=== PATIENT | female | born 1960 | race Caucasian/White ===

== ENCOUNTER → 2020-05-15 | Outpatient (CLI) | payer BC ==
[2020-05-15 12:22] LABS: Basophils % (A) 1 %; Eosinophils # (A) 0.1 k/uL (0-0.7); Eosinophils % (A) 2 %; HCT 41.4 % (34.0-46.0); HGB 13.3 gm/dL (11.4-16.0); Lymphocytes # (A) 1.3 k/uL (1.0-4.8); Lymphocytes % (A) 24 %; MCHC 32.1 g/dL (31.0-37.0); MCV 96.8 fL (80.0-100.0); Mean Platelet Volume 7.1; Monocytes # (A) 0.3 k/uL (0-1.0); Monocytes % (A) 5 %; Neutrophils # (A) 3.4 k/uL (1.3-7.7); Neutrophils % (A) 66 %; Platelet Count 252 k/uL (150-450); RBC 4.28 m/uL (3.80-5.40); RDW 12.7 % (11.5-15.5); WBC 5.2 k/uL (3.8-10.6)
== END | disposition home or self-care (01) ==
LOC: LABPAT 11:13
PROVIDERS: ATTEND Obstetrics & Gynecology
DX: Z01.818 Encounter for other preprocedural examination (principal)
CPT/HCPCS: 36415; 85025; 93005

== ENCOUNTER 2020-06-08 06:18 | Day surgery (SDC) | payer BC ==
[2020-06-05 09:06] VITALS: BMI 23.5
--- NOTE | 2020-06-06 16:16 | P.HPOB ---
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 Due to its location a LEEP colposcopy has been scheduled. Risks/benefits/alternatives to this procedure were reviewed with the patient in detail and all questions were answered for her prior to proceeding to the operative room. She is aware of the potential for further surgery if margins are unclear since will not be able to see how high up the changes are and will essentially be a blind biopsy to try and capture all of the dysplasia. Other risks/benefits and alternatives were reviewed with the patient in detail and all questions were answered for her prior to proceeding to the operative room. Past Medical History Past Medical History: No Reported History History of Any Multi-Drug Resistant Organisms: None Reported Past Surgical History: Tonsillectomy, Uterine Ablation Past Anesthesia/Blood Transfusion Reactions: No Reported Reaction Past Psychological History: No Psychological Hx Reported Smoking Status: Former smoker Past Alcohol Use History: Occasional Additional Past Alcohol Use History / Comment(s): Smoked in her 20's, quit when 22 yrs of age. Past Drug Use History: None Reported - Past Family History Mother Family Medical History: No Reported History Medications and Allergies Home Medications Medication Instructions Recorded Confirmed Type No Known Home Medications 06/05/20 06/05/20 History Allergies Allergy/AdvReac Type Severity Reaction Status Date / Time No Known Allergies Allergy Verified 06/05/20 09:07 Exam Osteopathic Statement: *. No significant issues noted on an osteopathic structural exam other than those noted in the History and Physical/Consult. - OBG Physical Exam Breast: both: normal (no masses) Abdomen: bowel sounds normal, no diffuse tenderness, no bruit present, no guarding noted, no hepatomegaly, no splenomegaly, no mass Vulva: both: normal Vagina: normal moisture, no discharge Cervix: no lesion, no discharge Uterus: normal size, normal contour Adnexa: both: normal Anus/Rectum: normal perianal skin, no rectal mass, no hemorrhoids, heme negative
[~2020-06-08 06:18] MED LIST: DEXAMETHASONE SOD PHOSPHATE 10 MG/ML 1 ML VIAL IV ONE; HYDROmorphone 0.5 MG/0.5 ML SYRINGE IVP PRN; LACTATED RINGERS 1,000 ML IV SCH; LIDOCAINE 1% (10MG/ML) FOR IV START INTRADERMA PRN; ONDANSETRON 4 MG/2 ML VIAL IVP ONE; Pre Op ABX Message 1 EACH MISC MISCELLANE ONE
[2020-06-08] MEDS ORDERED: ONDANSETRON 4 MG/2 ML VIAL ONE (06:44)
[2020-06-08] MEDS ORDERED: IODINE/POTASS IOD (LUGOLS) BOTTLE TOPICAL ONE ×2 (07:23→07:39)
[2020-06-08] MEDS ORDERED: MIDAZOLAM 2 MG/2 ML VIAL ONE (07:37)
[2020-06-08] MEDS ORDERED: fentaNYL (PF) 50 MCG/ML 2 ML AMP ONE (07:37)
[2020-06-08] MEDS ORDERED: PROPOFOL 10 MG/ML 20 ML VIAL IV ONE (07:37)
[2020-06-08] MEDS ORDERED: KETOROLAC 30 MG/ML 1 ML VIAL ONE (07:37)
[2020-06-08] MEDS ORDERED: LIDOCAINE 1% INJ 10MG/ML (20 ML MDV) ONE (07:37)
[2020-06-08] MEDS ORDERED: FERRIC SUBSULFATE (MONSELS) JAR TOPICAL ONE (08:04)
--- NOTE | 2020-06-08 08:10 | P.OP ---
Date of Procedure: 06/08/20 Preoperative Diagnosis: Cervical dysplasia Postoperative Diagnosis: Same Procedure(s) Performed: LEEP colposcopy Anesthesia: ZURDO Surgeon: Loc Buchanan Estimated Blood Loss (ml): 5 Pathology: other (Cervical cone) Condition: stable Disposition: same day Operative Findings: Patient has essentially no posterior cervix and the left cervical area is basically flush to the vagina making this a technically difficult case. Description of Procedure: Patient was taken to the operating suite where a general anesthetic was found be adequate. She was prepped and draped in normal sterile fashion placed in dorsal lithotomy position. Initially a coated speculum was inserted in the vagina and the cervix identified and covered with Lugol solution. No ectocervical changes were noted. Unique cervical architecture was noted with essentially the entire posterior cervix flush cancer vagina as well as the left side of the cervix making it very difficult to pull it away from the vaginal wall to obtain biopsy. Anterior cervix was 4 grasped with a coated tenaculum and using a 1 cm loop a endocervical cone was obtained. 2 extra small pieces works excise to try and make sure that we were able to get complete cervical cone and hopefully deep enough that it removed all dysplastic tissue. Once this tissues collected 1 cm loop was exchanged for a ball-tipped and the area was cauterized to try and desiccate any potential remaining dysplastic tissue. Incidents were all then removed. Sponge, lap, needle counts were all correct 2. Patient was then taken to the recovery room in stable and satisfactory condition. Plan - Discharge Summary Discharge Rx Participant: Yes New Discharge Prescriptions: New Ibuprofen [Motrin] 600 mg PO Q6HR PRN #30 tab PRN Reason: Pain Discharge Medication List Ibuprofen [Motrin] 600 mg PO Q6HR PRN #30 tab 06/08/20 [Rx] Follow up Appointment(s)/Referral(s): Loc Buchanan DO [Doctor of Osteopathic Medicine] - 1 Week Activity/Diet/Wound Care/Special Instructions: No heavy lifting, limit stairs and driving, and complete pelvic rest for 2 weeks. If any high temperatures, heavy bleeding, or severe pain call my office Discharge Disposition: HOME SELF-CARE
[2020-06-08 08:29] VITALS: TEMP 97.3
[2020-06-08 09:44] VITALS: RESP 18
[2020-06-08 09:55] VITALS: BP 115/72; PULSE 59
== END 2020-06-08 10:15 | disposition home or self-care (01) ==
LOC: OR 06:18
PROVIDERS: ATTEND Obstetrics & Gynecology
DX: N87.0 Mild cervical dysplasia (principal); B97.7 Papillomavirus as the cause of diseases classified elsewhere; Z98.890 Other specified postprocedural states; Z87.891 Personal history of nicotine dependence
CPT/HCPCS: 88307; 57461; J2250; J1100; J2405; J2001; J3010; J1885; J2704

== ENCOUNTER 2020-10-24 08:33 | Day surgery (SDC) | payer BC ==
[2020-10-22 15:31] VITALS: BMI 25.0
[~2020-10-24 08:33] MED LIST changes: -DEXAMETHASONE SOD PHOSPHATE 10 MG/ML 1 ML VIAL IV ONE; -HYDROmorphone 0.5 MG/0.5 ML SYRINGE IVP PRN; -ONDANSETRON 4 MG/2 ML VIAL IVP ONE; -Pre Op ABX Message 1 EACH MISC MISCELLANE ONE
[2020-10-24 08:58] VITALS: TEMP 97.5
[2020-10-24] MEDS ORDERED: PROPOFOL 10 MG/ML 20 ML VIAL IV ONE (10:11)
[2020-10-24] MEDS ORDERED: LIDOCAINE 1% INJ 10MG/ML (20 ML MDV) ONE (10:11)
--- NOTE | 2020-10-24 10:34 | P.PCN ---
Date of Procedure: 10/24/20 Procedure(s) Performed: BRIEF HISTORY: Patient is a 60-year-old pleasant female scheduled for an elective colonoscopy as a part of evaluation of positive cologuard. Last colonoscopy was several years ago. PROCEDURE PERFORMED: Colonoscopy with snare polypectomy and Endo Clip placement. PREOPERATIVE DIAGNOSIS: Positive cologuard. IV sedation per Anesthesia. PROCEDURE: After informed consent was obtained, the patient, was brought into the endoscopy unit. IV sedation was administered by Anesthesia under continuous monitoring. Digital rectal examination was normal. Initially the Olympus CF-160 flexible video colonoscope was then inserted in the rectum, gradually advanced into the cecum without any difficulty. Careful examination was performed as the scope was gradually being withdrawn. Ileocecal valve and the appendiceal orifice were visualized and appeared normal. Prep was excellent. In the cecum opposite the ileocecal valve there was a 2 cm broad-based polyp that was removed by snare polypectomy followed by Endo Clip placement. In the proximal transverse colon there was a 5 mm polyp removed by snare polypectomy the transverse colon, descending colon, we normal. In the sigmoid: There was a 2 cm broad-based polyp removed by snare polypectomy. In the rectosigmoid colon there was a 1 cm polyp removed by snare polypectomy. Rest of the sigmoid colon, and rectum appeared normal. Retroflexion was performed in the rectum and no lesions were seen. The patient tolerated the procedure well. IMPRESSION: 1.5 cm broad-based cecal polyp status post polypectomy followed by Endo Clip placement 5 mm proximal transverse colon polyp status post snare polypectomy 2 cm broad-based proximal sigmoid colon polyp status post polypectomy 1 cm pedunculated rectosigmoid polyp status post polypectomy RECOMMENDATIONS: Findings of this examination were discussed with the patient as her family. She was advised to follow with the biopsy results. If the biopsy shows adenoma she can have a repeat colonoscopy in 3 years.
[2020-10-24 10:38] VITALS: RESP 16
[2020-10-24 11:02] VITALS: BP 111/72; PULSE 60
== END 2020-10-24 11:19 | disposition home or self-care (01) ==
LOC: ORWHC2ENDO 08:33
PROVIDERS: ATTEND Internal Medicine Gastroenterology
DX: D12.0 Benign neoplasm of cecum (principal); D12.3 Benign neoplasm of transverse colon; D12.7 Benign neoplasm of rectosigmoid junction; D12.5 Benign neoplasm of sigmoid colon; Z90.89 Acquired absence of other organs; Z98.890 Other specified postprocedural states
CPT/HCPCS: 88305; 45385; J2001; J2704; 45382

== ENCOUNTER → 2021-11-26 | Outpatient (CLI) | payer BC ==
--- NOTE | 2021-11-26 11:31 | US ---
EXAMINATION TYPE: US abdomen complete DATE OF EXAM: 11/26/2021 COMPARISON: NONE CLINICAL HISTORY: 61-year-old female R10.32 LLQ ABD PAIN,R19.04 LLQ MASS SWELLING. TECHNIQUE: Multiple sonographic images of the abdomen are obtained. FINDINGS: EXAM MEASUREMENTS: Liver Length: 13.8 cm Gallbladder Wall: 0.2 cm CBD: 0.6 cm Spleen: 8.2 cm Right Kidney: 9.1 x 4.0 x 3.9 cm Left Kidney: 11.4 x 4.9 x 5.3 cm Pancreas: Suboptimal visualization of the pancreatic head due to shadowing from bowel gas. Visualize d portions show no gross body. Liver: Slightly echogenic. No focal lesion. Gallbladder: No stones seen Evidence for sonographic Sarah's sign: No CBD: Upper limits of normal in caliber likely age-related change. Spleen: wnl Kidney: No hydronephrosis. Upper IVC: wnl Abd Aorta: wnl [employer] Supervisor notes: Additional scanning was performed over patient's area of concern, LLQ, with and wi thout valsalva. No definite hernia identified, no mass or fluid collection seen. IMPRESSION: 1. Targeted scanning along the left lower quadrant at the site of patient's swelling shows no discret e sonographic abnormality. If symptoms persist, consider cross-sectional imaging evaluation. 2. There may be mild fatty infiltration of the liver. 3. Bile duct borderline in caliber at 6 mm, likely age related change. Correlate with alkaline phosph atase and bilirubin levels.
== END | disposition home or self-care (01) ==
LOC: RADUSWWP 07:04
PROVIDERS: ATTEND Family Medicine
DX: R19.04 Left lower quadrant abdominal swelling, mass and lump (principal)
CPT/HCPCS: 76700

== ENCOUNTER → 2024-01-14 | Outpatient (CLI) | payer BC ==
--- NOTE | 2024-01-15 04:55 | MR ---
EXAMINATION TYPE: MR shoulder RT wo con DATE OF EXAM: 01/14/2024 COMPARISON: Outside right shoulder x-ray January 05, 2024 HISTORY: Right shoulder/ upper arm pain due to fall on ice about 5 weeks ago TECHNIQUE: Multiplanar, multisequence imaging of the right shoulder is performed without contrast. FINDINGS: Rotator Cuff: Intact supraspinatus and infraspinatus tendons. Intact subscapularis tendon. Rotator cu ff muscle bulk is preserved. Acromioclavicular Joint: Mild narrowing. No significant spurring. Underlying fat plane is maintained. Glenohumeral Joint: Small joint effusion. No significant spurring. Labrum: Increased signal superior labrum suggesting degenerative tear. Biceps Tendon: The long head of biceps is in normal location within bicipital groove. Bone marrow signal: Corresponding to radiograph there is linear diminished T1 signal through the late ral aspect of the humeral head consistent with acute nondisplaced comminuted type fracture. There is surrounding T2 hyperintense signal or edema. No significant bony displacement.. Other: No additional significant abnormality is appreciated. IMPRESSION: Acute comminuted nondisplaced fracture to the lateral aspect of the humeral head includin g the greater tuberosity without retracted rotator cuff tear. Degenerative superior labral tear.
== END | disposition home or self-care (01) ==
LOC: RADMRIMAIN 11:09
PROVIDERS: ATTEND Orthopaedic Surgery
DX: S42.295A Other nondisplaced fracture of upper end of left humerus, initial encounter for closed fracture (principal)

== ENCOUNTER → 2024-09-06 | Outpatient (CLI) | payer BC ==
[2024-09-06 10:13] VITALS: BP 110/69; PULSE 66; RESP 16; TEMP 97.8
--- NOTE | 2024-09-06 12:28 | P.HPOB ---
History of Present Illness H&P Date: 09/06/24 Chief Complaint: The patient is here for her routine gynecologic exam. This is a 64-year-old G2, P2 with an LMP of 2011. Patient is here to establish with this office. She previously saw Dr. Serna for her gynecologic care. She was last there on 09/01/2023. The records from Dr. Serna's office indicates she has had many years of abnormal Pap smears dating back to 2011. From [id number] she had many ASCUS Pap smears and low-grade JOSUÉ Pap smears with positive high- risk HPV testing. She has also had multiple colposcopies which were unremarkable. On 12/13/2019 she did have a Pap smear showing ASCUS with positive high-risk HPV testing. Colposcopic examination on 03/13/2020 had a fragment of possible high-grade dysplasia with the ECC. She was scheduled for a LEEP procedure of the cervix which was done on 06/08/2020 which showed LI-1. Since the LEEP procedure she has had 3 negative Pap smear cotest done on 08/20/2021, 08/27/2022, and 09/02/2023. The patient is without gynecologic complaints and denies any postmenopausal bleeding. Review of Systems The patient has gained 5 pounds over the last year. She denies respiratory, cardiac, or G.I. problems. Past Medical History Additional Past Medical History / Comment(s): Osteopenia(used monthly Rx ?Boniva? for 1yr). Past MEDICAL CODING MANAGER history: History of HPV. No other STDs in the past. History of Any Multi-Drug Resistant Organisms: None Reported Past Surgical History: Tonsillectomy, Uterine Ablation Additional Past Surgical History / Comment(s): Endometrial ablation in 2011. LEEP procedure of the cervix in June 2020. Colonoscopy 2020. Lipoma removed from her abdomen. Past Anesthesia/Blood Transfusion Reactions: No Reported Reaction Smoking Status: Former smoker Past Alcohol Use History: Occasional (About 10 drinks per week.) Additional Past Alcohol Use History / Comment(s): Quit smoking at age 22. Past Drug Use History: None Reported Additional History: She has been since 1984. She works for [employer] in [employer]. - Past Family History Mother Family Medical History: Cancer Additional Family Medical History / Comment(s): from widespread cancer with unknown primary. Father Family Medical History: Cancer Additional Family Medical History / Comment(s): from leukemia. Medications and Allergies Home Medications Medication Instructions Recorded Confirmed Type Multivit-Min/Iron/Folic/Lutein 1 each PO DAILY 10/22/20 09/06/24 History [Centrum Silver Women Tablet] Calcium Carbonate [Calcium] 1 tab PO DAILY 09/06/24 09/06/24 History Cholecalciferol [Vitamin D3 (25 1 tab PO DAILY 09/06/24 09/06/24 History Mcg = 1000 Iu)] Allergies Allergy/AdvReac Type Severity Reaction Status Date / Time No Known Allergies Allergy Verified 09/06/24 10:09 Exam Vital Signs Temp Pulse Resp BP Pulse Ox 09/06/24 10:11 97.8 F 66 16 110/69 98 Intake and Output 09/05/24 09/06/24 09/06/24 22:59 06:59 14:59 Other: Weight 68.946 kg Height 5 feet 7 inches, weight 152 pounds, BMI 23.8. This is a well-developed well-nourished white female who is alert and oriented times 3 in no acute distress. HEENT: Within normal limits. NECK: Supple without mass or thyromegaly. CHEST AND LUNGS: Clear to auscultation. HEART: Regular rate and rhythm. BREASTS: Are without mass or discharge. AXILLARY EXAM: Negative for adenopathy. BACK: Negative for CVA tenderness. ABDOMEN: Soft, nontender, without palpable masses. PELVIC EXAM: Normal external genitalia mild atrophy. Cervix and vagina appear normal with mild atrophy. The cervix is fairly nearly flush with the back of the vagina and slightly irregular consistent with previous LEEP procedure. The cervix is somewhat stenotic. There are no cervical lesions noted. There is no unusual discharge. There is no evidence of prolapse. The uterus is midposition, nongravid size and nontender. There are no palpable adnexal masses or tenderness. RECTAL EXAM: Rectovaginal exam is negative for mass or tenderness and is negative for occult blood. EXTREMITIES: Nontender. IMPRESSION: 1. 64-year-old menopausal female with gynecologic exam consistent with her previous LEEP procedure. The exam is otherwise unremarkable. 2. History of LEEP procedure on 06/08/2024 positive high-grade ECC, ASCUS Pap smear with positive high-risk HPV testing. She has had 3 negative Pap smear cotest since then. 3. History of osteopenia. PLAN: 1. Pap smear cotest was performed. If this is negative, we will plan on repeating the Pap smear in 2 to 3 years. Pap smear testing will be continued for 20 years beyond the LEEP procedure. 2. Self breast awareness was discussed with the patient. We have also discussed symptoms associated with inflammatory breast cancer. 3. Screening mammogram was done on 09/01/2023 and was normal per the patient. This was done at [facility]. She will repeat this here or at [facility]. The order slip was given to the patient for this. 4. Osteoporosis prevention was discussed. I have stressed the importance of adequate calcium, vitamin D and regular exercise. Recommended amounts of calcium and vitamin D were also discussed. She states her last bone density test was done at [facility]. According to the records it was done on 10/10/2022. Will plan on repeating this and the order slip was given to the patient for this. 5. She was advised to return in one year for her annual well woman exam.
== END ==
LOC: WWCWWP 09:50
PROVIDERS: ATTEND Obstetrics & Gynecology
DX: Z01.419 Encounter for gynecological examination (general) (routine) without abnormal findings (principal); M85.80 Other specified disorders of bone density and structure, unspecified site; Z78.0 Asymptomatic menopausal state; Z87.891 Personal history of nicotine dependence; Z98.890 Other specified postprocedural states

== ENCOUNTER → 2024-10-04 | Outpatient (CLI) | payer BC ==
--- NOTE | 2024-10-04 12:26 | BD ---
EXAMINATION TYPE: Axial Bone Density DATE OF EXAM: 10/04/2024 CLINICAL HISTORY: 64 years old Female. ICD-10 CODE: Z78.0 ASYMPTOMATIC MENOPAUSAL STA , Additional H istory: Height: 5 ft 5 1/2 in Weight: 152 FRAX RISK QUESTIONS: Alcohol (3 or more units per day): no Family History (Parent hip fracture): no Glucocorticoids (More than 3mos): no (Ex: prednisone, prednisolone, methylprednisolone, dexamethasone, and hydrocortisone). History of Fracture in Adulthood: yes Secondary Osteoporosis: 1. Type 1 Diabetes: no 2. Hyperthyroidism: no 3. Menopause before 45: no 4. Malnutrition: no 5. Chronic liver disease: no Rheumatoid Arthritis: no Current Tobacco Use: no RISK FACTORS HISTORY OF: Surgery to Spine/Hip(right/left)/Wrist (right/left): no MEDICATIONS: Thyroid Medications: none Osteoporosis Medications: none EXAM MEASUREMENTS: Bone mineral densitometry was performed using the [employer] System. Bone mineral density as measured about the Lumbar spine is: ----- L1-L4(G/cm2): 1.000 T Score Values are as follows: ----- L1: -1.2 ----- L2: -1.5 ----- L3: -1.7 ----- L4: -1.7 ----- L1-L4: -1.5 Z Score Values are as follows: ----- L1: 0.1 ----- L2: -0.2 ----- L3: -0.3 ----- L4: -0.4 ----- L1-L4: -0.2 baseline Bone mineral density about the R hip (g/cm2): 0.742 Bone mineral density about the L hip (g/cm2): 0.744 T Score values are as follows: -----R Neck: -2.1 -----L Neck: -2.1 -----R Total: -1.6 -----L Total: -1.4 Z Score values are as follows: -----R Neck: -0.8 -----L Neck: -0.8 -----R Total: -0.6 -----L Total: -0.4 baseline FRAX%s: The graph provided illustrates a 18.4 % chance for a major osteoporotic fx and a 3.0 % chance for the hips probability for fx in 10 years time. IMPRESSION: Osteopenia (T Score between -2.5 and -1). There is slightly increased risk of fracture and the patient may be considered for treatment. Re-Screen 2-5 years. NOTE: T-SCORE=SD OF THE YOUNG ADULT MEAN. [facility], , 10/04/2024 12:24 PM
--- NOTE | 2024-10-04 16:55 | P.PN ---
Progress Note - Text Progress Note Date: 10/04/24 OUTPATIENT FOLLOW-UP NOTE TEST(S)/RESULTS: Bone density test done on 10/04/2024 shows osteopenia. It was the first bone density test done here and we have nothing to compare it to. METHOD OF NOTIFICATION: The patient was notified by phone on 10/04/2024. PATIENT COMMENTS: The patient states she did have a bone density test in 2021 at [facility]. DIAGNOSIS: Osteopenia. DISCUSSION: I have stressed the importance of adequate calcium, vitamin D, and regular exercise. Plan on repeating the bone density test in 2 to 3 years. If she can obtain the report from her last bone density test, she will try to send it to me. PLAN: As above.
--- NOTE | 2024-10-05 17:09 | MM ---
Reason for Exam: Screening (asymptomatic). Last mammogram was performed 2 year(s) and 0 month(s) ago. Patient History: Menarche at age 13. First Full-Term at age 28. Other cancer. Patient used Hormonal Contraceptives for 1 year. Excisional Biopsy on the Right side. Maternal grandmother had breast cancer. Risk Values: Diane 5 year model risk: 2.1%. NCI Lifetime model risk: 8.7%. Prior Study Comparison: 03/23/2006 Bilateral Diagnostic Mammogram, [facility]. 06/03/2007 Bilateral Diagnostic Mammogram, [facility]. 06/07/2008 Bilateral Screening Mammogram, [facility]. 10/10/2022 Bilateral Screening Mammogram, [facility]. 10/13/2022 Bilateral Screening Mammogram, [facility]. Tissue Density: The breasts are heterogeneously dense, which may obscure small masses. Findings: Analyzed By CAD. Subareolar focal asymmetry left breast has increased. Further evaluation recommended. Otherwise, no significant change. Overall Assessment: Incomplete: need additional imaging evaluation, BI-RAD 0 Management: Special View Mammogram of the left breast. Diagnostic Breast Ultrasound of the left breast. [facility] will attempt to contact patient to return for supplemental views and ultrasound. [facility], , 10/05/2024 5:06 PM. Electronically signed and approved by: Brian Prescott M.D. Radiologist
== END | disposition home or self-care (01) ==
LOC: RADMAMWWP 09:34
PROVIDERS: ATTEND Obstetrics & Gynecology
DX: Z12.31 Encounter for screening mammogram for malignant neoplasm of breast (principal); Z78.0 Asymptomatic menopausal state; M81.8 Other osteoporosis without current pathological fracture; M85.80 Other specified disorders of bone density and structure, unspecified site
CPT/HCPCS: 77063; 77067; 77080

== ENCOUNTER → 2024-10-18 | Outpatient (CLI) | payer BC ==
--- NOTE | 2024-10-18 10:39 | MM ---
Reason for Exam: Additional evaluation requested from abnormal screening. Last screening mammogram was performed less than 1 month ago. Patient History: Menarche at age 13. First Full-Term at age 28. Other cancer. Patient used Hormonal Contraceptives for 1 year. Excisional Biopsy on the Right side. Maternal grandmother had breast cancer. Risk Values: Diane 5 year model risk: 2.1%. NCI Lifetime model risk: 8.7%. Prior Study Comparison: 10/10/2022 Bilateral Screening Mammogram, [facility]. 10/13/2022 Bilateral Screening Mammogram, [facility]. 10/04/2024 Bilateral MG 3D screening mammo w/cad, [facility]. Tissue Density: Left: There are scattered areas of fibroglandular density. Findings: Analyzed By CAD. Left-sided retroareolar density persists although is less conspicuous without distinct mass. Precautionary ultrasound is recommended. Overall Assessment: Incomplete: need additional imaging evaluation, BI-RAD 0 Management: Diagnostic Breast Ultrasound of the left breast. . Results were given to the patient verbally at the time of exam. Patient should continue monthly self-breast exams. A clinical breast exam by your physician is recommended on an annual basis. This exam should not preclude additional follow-up of suspicious palpable abnormalities. Note on Diane scores and lifetime risk: 1. A Diane score greater than 3% is considered moderate risk. If this is the case, consider specialist referral to assess eligibility for a risk reducing agent. 2. If overall lifetime risk for the development of breast cancer is 20% or higher, the patient may qualify for future screening with alternating mammogram and breast MRI. [facility], , 10/18/2024 10:36 AM. Electronically signed and approved by: Young Hyatt M.D. Radiologis
--- NOTE | 2024-10-18 12:47 | USB ---
Reason for Exam: Additional evaluation requested from abnormal screening. Patient History: Menarche at age 13. First Full-Term at age 28. Other cancer. Patient used Hormonal Contraceptives for 1 year. Excisional Biopsy on the Right side. Maternal grandmother had breast cancer. Risk Values: Diane 5 year model risk: 2.1%. NCI Lifetime model risk: 8.7%. Technique: Method: Targeted. Prior Study Comparison: 10/10/2022 Bilateral Screening Mammogram, [facility]. 10/13/2022 Bilateral Screening Mammogram, [facility]. 10/04/2024 Bilateral MG 3D screening mammo w/cad, [facility]. Findings: The axilla of the left breast and the retroareolar of the left breast were scanned. No solid or cystic masses are identified.. Overall Assessment: Negative, BI-RAD 1 Management: Screening Mammogram of both breasts in 1 year. A clinical breast exam by your physician is recommended on an annual basis and results should be correlated with mammographic findings. This exam should not preclude additional follow-up of suspicious palpable abnormalities. Results were given to the patient verbally at the time of exam. [facility], , 10/18/2024 11:42 AM. Electronically signed and approved by: Young Hyatt M.D. Radiologis
== END | disposition home or self-care (01) ==
LOC: RADMAMWWP 09:59
PROVIDERS: ATTEND Obstetrics & Gynecology
DX: R92.8 Other abnormal and inconclusive findings on diagnostic imaging of breast (principal); Z80.3 Family history of malignant neoplasm of breast; R92.322 Mammographic fibroglandular density, left breast
CPT/HCPCS: 77061; 77065